=== PATIENT | male | born 1955 | race Caucasian/White ===

== ENCOUNTER → 2020-06-13 10:03 | Outpatient (CLI) | payer MEDICAID | END | disposition home or self-care (01) | LOC: D.HCCARDIO 10:03 → D.HCCECHO 11:00 | PROVIDERS: ATTEND Internal Medicine Cardiovascular Disease | DX: I25.10 Atherosclerotic heart disease of native coronary artery without angina pectoris (principal) ==

== ENCOUNTER 2020-06-26 12:36 | Day surgery (SDC) | payer MEDICAID ==
[~2020-06-26] VITALS: Ht 188 cm; Wt 120.9 kg
--- NOTE | ~2020-06-26 | HEMODYNAMI ---
PATIENT:TAMMY ANTONIO MEDICAL RECORD: [id number] : 57 LOCATION:[facility] ADMISSION DATE: 06/26/20 Generatedon:06/26/202015:24 Patient name: TAMMY ANTONIO Patient #: [id number] SSN: [id number] : 1955 Date of study: 06/26/2020 Page: Of Hemodynamic Procedure Report Patient Data Patient Demographics Procedure consent was obtained First Name: TAMMY Gender: Male Last Name: MARISELA : 1955 Patient #: [id number] Age: 65 year(s) Race: SSN: [id number] Additional ID: [id number] Contact details [address]: [address] [place] [address] State: [place] City: [place] Zip code: [address] Admission Admission Data Admission Date: 06/26/2020 Admission Time: 12:36 Arrival Date: 06/26/2020 Arrival Time: 14:00 Admit Source: Other Insurance Payor: Private health insurance [facility] #: [id number] Procedure Procedure Types Cath Procedure Diagnostic Procedure C [facility] w/Coronaries Sedation Charges Moderate Sedation up to 15 minutes Procedure Description Procedure Date Procedure Date: 06/26/2020 Procedure Start Time: 15:08 Procedure End Time: 15:22 Procedure Staff Name Function Ricardo Dennison MD Performing Physician Teresa Mcghee RT Monitor Adryan Golden RT Scrub Padmini Mccollum RN Nurse Ovidio Damon RN Fiber Drier Operator Procedure Data Cath Procedure Fluoroscopy Diagnostic fluoroscopy Total fluoroscopy Time: 2.3 time: 2.3 min min Diagnostic fluoroscopy Total fluoroscopy dose: dose: 1175 mGy 1175 mGy Contrast Material Contrast Material Type Amount (ml) Isovue 300 77 Entry Location Entry Primary Successful Side Size Upsize Upsize Entry Closure Torres ccessful Closure Location (Fr) 1 (Fr) 2 (Fr) Remarks Device Remarks Radial Right 6 Fr Mechanical artery Short Compression Estimated blood loss: 5 ml Procedure Complications No complications Procedure Medications Medication Administration Route Dosage 0.9% NaCl I.V. 100 ml/hr Oxygen etCO2 Nasal cannula 2 l/min Lidocaine 2% added to field 20 Heparin Flush Bag added to field 2 bags (1000units/500ml NS) Radial Cocktail added to field 1 syringe (Verapamil 2mg/Nitro 400mcg/Heparin 1500units) Versed I.V. 2 mg Fentanyl I.V. 50 mcg Radial Cocktail I.A. 1 syringe (Verapamil 2mg/Nitro 400mcg/Heparin 1500units) Fentanyl I.V. 50 mcg Hemodynamics Rest Heart Rate: 76 (bpm) Pressure Samples Time Site Value (mmHg) Purpose Heart Use Rate(bpm) 15:12 LV 138/-11,11 Snapshot 83 15:12 AO 108/68(85) Pullback 85 15:12 LV 126/-3,11 Pullback 85 Gradients Valve Time Site 1 Site 2 Mean SEP/DFP Peak To Heart Use (mmHg) (sec/min) Peak Rate (mmHg) (bpm) Aortic 15:12 LV AO 8 6 18 85 126/-3,11 108/68(85) Calculations Valve P-P Mean Valve Index Valve Source Name Gradient Area Flow (cm2) Aortic 18 8 18 8 Snapshots Pre Cath Intra NCS Post Cath Vital Signs Time Heart Resp SPO2 etCO2 NIBP (mmHg) Rhythm Pain Sedation Rate (ipm) (%) (mmHg) Status Level (bpm) 14:50:51 79 13 98 36.7 125/79(100) NSR 0 (11) 10(A) , No pain 14:54:50 78 14 98 26.2 117/80(91) NSR 0 (11) 10(A) , No pain 14:58:50 76 11 98 22.4 121/77(107) NSR 0 (11) 10(A) , No pain 15:02:49 72 10 95 17.9 116/79(101) NSR 0 (11) 10(A) , No pain 15:06:47 71 13 94 42.6 120/78(103) NSR 0 (11) 10(A) , No pain 15:10:44 73 12 96 40.5 133/79(99) NSR 0 (11) 9(A) , No pain 15:14:46 79 11 94 40.4 126/73(91) NSR 0 (11) 9(A) , No pain 15:18:46 77 14 94 20.9 125/80(95) NSR 0 (11) 10(A) , No pain 15:22:45 75 11 95 40.4 108/76(93) NSR 0 (11) 10(A) , No pain Medications Time Medication Route Dose Verified Delivered Reason Notes Effectiveness by by 14:47:05 0.9% NaCl I.V. 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 2 mg Ricardo Padmini for sedation Juma Mccollum RN 15:07:54 Fentanyl I.V. 50 mcg Ricardo Padmini for sedation Juma Mccollum RN 15:11:08 Radial Cocktail I.A. 1 Ricardo Ricardo for (Verapamil syringe Juma Dennison MD vasodilation 2mg/Nitro 400mcg/Heparin 1500units) 15:11:28 Fentanyl I.V. 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 Start room use. 14:43:57 Diagnostic Cath Status : Elective 14:44:11 Time tracking: Regular hours (M-F 7:00 - 5:00) 14:44:15 Plan of Care:Hemodynamics will remain stable., Cardiac rhythm will remain stable., Comfort level will be maintained., Respiratory function will remain adequate., Patient/ family verbilizes understanding of procedure., Procedure tolerated without complication., Recovers from procedure without complications.. 14:44:23 Patient received from Pre/Post Procedure Room to CCL 2 Alert and oriented. Tansferred to table in Supine position. 14:44:24 Warm blankets applied, and matthew hugger turned on for patient comfort. 14:44:25 Correct patient and procedure confirmed by team. 14:44:25 ECG and BP/O2 sat monitors applied to patient. 14:47:05 0.9% NaCl 100 ml/hr I.V. was administered by Padmini Mccollum RN; used for procedure; Verbal order read back and verified. 14:47:12 Oxygen 2 l/min etCO2 Nasal cannula was administered by Padmini Mccollum RN; used for procedure; Verbal order read back and verified. 14:47:16 Lidocaine 2% 20ml vial added to field was administered by Ricardo Dennison MD; for local anesthetic; Verbal order read back and verified. 14:47:20 Heparin Flush Bag (1000units/500ml NS) 2 bags added to field was administered by Ricardo Dennison MD; used for procedure; Verbal order read back and verified. 14:47:28 Radial Cocktail (Verapamil 2mg/Nitro 400mcg/Heparin 1500units) 1 syringe added to field was administered by Ricardo Dennison MD; used for procedure; Verbal order read back and verified. 14:50:01 Vital chart was started 14:54:29 Baseline sample Acquired. 14:54:34 Rhythm: sinus tachycardia 14:57:59 Full Disclosure recording started 14:58:08 H&P Date Dictated: 06/26/2020 Within 30 days and on chart., H&P Addendum completed by physician on day of procedure. (MUST COMPLETE FOR ALL OUTPATIENTS). 14:58:10 Pre-procedure instructions explained to patient. 14:58:10 Pre-op teaching completed and patient verbalized understanding. 14:58:13 Family in patients room. 14:58:16 Patient NPO since Midnight. 14:58:23 Is the patient allergic to Iodine/contrast media? No. 14:58:24 Was the patient premedicated? Yes 14:58:25 Is patient on blood thinner?No 14:58:26 Patient diabetic? No. 14:58:28 Previous problem with sedation/anesthesia? No ? 14:58:30 Snore? Yes 14:58:31 Sleep apnea? No 14:58:34 Deviated septum? No 14:58:35 Opens mouth fully? Yes 14:58:36 Sticks out tongue? Yes 14:58:37 Airway obstruction? No ? 14:58:41 Dentures? No ? 14:58:44 Pre procedure: right dorsailis pedis pulse 2+ Normal; easily identifiable; not easily obliterated 14:58:46 Pre procedure: left dorsailis pedis pulse 2+ Normal; easily identifiable; not easily obliterated 14:58:48 Patient pain scale 0/10 ?. 14:58:53 IV patent on arrival in left forearm with 0.9% NaCl at [facility]. 14:58:56 Lab results completed and on chart. 15:02:11 Right Radial & Right Groin area was prepped with chlora-prep and draped in sterile fashion 15:02:12 Alarms reviewed by R. N. 15:02:12 Sharps counted by scrub and verified by R.N. 15:02:14 Physician arrived 15:02:14 --------ALL STOP TIME OUT------ 15:02:15 Final Timeout: patient, procedure, and site verified with staff and physician. All members of the team are in agreement. 15:02:17 Right Radial & Right Groin site verified by team. 15:02:21 Fire Safety Assessment: A--An alcohol-based skin anteseptic being used preoperatively., C--Open oxygen or nitrous oxide is being used., D--An ESU, laser, or fiber-optic light is being used. 15:02:24 Physical assessment completed. ASA score P 2 - A patient with mild systemic disease as per Ricardo Dennison MD. 15:02:31 Sedation plan: IV Moderate Sedation Medication:Versed, Fentanyl 15:06:43 Use device set Radial Dx or PCI 15:06:44 ACIST Syringe (66191) opened to sterile field. 15:06:44 Medline Cath Pack ([id number]) opened to sterile field. 15:06:45 Bag Decanter () opened to sterile field. 15:06:45 ACIST Hand Control (14224) opened to sterile field. 15:06:46 ACIST Manifold (55270) opened to sterile field. 15:06:46 Tegaderm 4 x 4 (1626W) opened to sterile field. 15:06:47 MBrace Wrist Support ([id number]) opened to sterile field. 15:06:48 NEEDLE Cook 21G 4cm Radial (U07670) opened to sterile field. 15:06:49 SHEATH 6FR RAIN (2594528) opened to sterile field. 15:06:50 EMERALD Guide Wire (231-550) opened to sterile field. 15:07:49 Versed 2 mg I.V. was administered by Padmini Mccollum RN; for sedation; Verbal order read back and verified. 15:07:54 Fentanyl 50 mcg I.V. was administered by Padmini Mccollum RN; for sedation; Verbal order read back and verified. 15:08:47 Procedure started. 15:08:52 Local anesthetic to right radial artery with Lidocaine 2% by Ricardo Dennison MD.INITIAL ACCESS ONLY 15:09:00 Zero performed for pressure channel P1 15:10:09 A 6 Fr Short sheath was inserted into the Right Radial artery 15:11:08 Radial Cocktail (Verapamil 2mg/Nitro 400mcg/Heparin 1500units) 1 syringe I.A. was administered by Ricardo Dennison MD; for vasodilation; Verbal order read back and verified. 15:11:28 Fentanyl 50 mcg I.V. was administered by Padmini Mccollum RN; for sedation; Verbal order read back and verified. 15:12:32 LV hemodynamics recorded. 15:12:33 LV gram done using CAMEJO 15:12:36 Injector settings: Ml/sec: 5, Volume: 15, 15:12:42 EF : 60 % 15:13:10 LCA angiography performed. 15:13:12 Injector settings: Ml/sec: 3, Volume: 6, 15:16:56 RCA angiography performed. 15:16:59 Injector settings: Ml/sec: 3, Volume: 6, 15:19:49 Catheter removed. 15:19:52 ZEPHYR REGULAR TR BAND (585264) opened to sterile field. 15:19:58 ACCDominant side:Right 15:20:11 Sheath removed intact; hemostasis achieved with Mechanical Compression to the Right Radial artery. 15:20:12 Procedure ended.(Physican Out) 15:20:45 Fluoroscopy time 02.30 minutes. 15:21:01 Fluoroscopy dose: 1175 mGy 15:21:01 Flurop Dose total: 1175 15:21:06 Dose Area Product 06968 mGy/cm. 15:21:14 Contrast amount:Isovue 300 77ml. 15:21:16 Maximum allowable dose exceeded? No. 15:21:17 Sharps counted by scrub and verified by R.N. 15:21:20 Insertion/operative site no bleeding no hematoma. 15:21:32 Post right radial artery:stable 15:21:33 Post Procedure Pulses reassessed and unchanged 15:21:35 Post procedure rhythm: unchanged. 15:21:38 Estimated blood loss: 5 ml 15:21:39 Post procedure instruction explained to patient.Patient verbalizes understanding. 15:21:40 Patient needs reinforcement of post procedure teaching. 15:22:01 Procedure and supply charges have been captured, reviewed, submitted and are correct. 15:22:10 Procedure type changed to Cath procedure, Diagnostic procedure, LHC, [facility] w/Coronaries, Sedation Charges, Moderate Sedation up to 15 minutes 15:22:19 Procedure Complication : No complications 15:22:21 Vital chart was stopped 15:22:26 [facility] Findings: MVD- MD will discuss options w/ pt 15:22:34 Operative report dictated upon procedure completion. 15:22:34 See physician's report for complete and final results. 15:22:38 Report given to Pre/Post Procedure Room. 15:22:41 Patient transfered to Pre/Post Procedure Room with Stretcher. 15:22:44 Procedure ended. 15:22:44 Full Disclosure recording stopped 15:22:49 End room use (Document Last) 15:23:38 End room use (Document Last) 15:24:01 End room use (Document Last) Device Usage Item Name Manufacture Quantity Catalog Hospital Part Current Minima l Lot# / Number Charge Number Stock Stock Serial# Code ACIST Acist 1 18940 454552 679193 066125 20 Syringe Medical (59281) Systems Inc Medline Medline 1 [id number] 077548 10037 190326 5 Cath Pack ([id number]) Bag Microtek 1 822529 19964 784033 5 Decanter Medical Inc. () ACIST Hand Acist 1 27340 550427 556763 862630 5 Control Medical (29036) Systems Inc ACIST Acist 1 03172 208633 819767 685373 5 Manifold Medical (09009) Systems Inc Tegaderm 4 3M 1 1626W 536901 862746 397748 5 x 4 (1626W) MBrace Advanced 1 140-0250-00 371167 11724 504985 5 Wrist Vascular Support Dynamics ([id number]) NEEDLE Cook Cook Medical 1 S15578 049951 334449 732028 5 21G 4cm Radial (D04752) SHEATH 6FR Cardinal 1 0065765 473264 0519279 837533 5 RAIN Health (3542378) EMERALD Cardinal 1 956-122 982429 363531 636174 5 Guide Wire Health (863-577) ZEPHYR Cardinal 1 063986 917369 8440211 972875 5 REGULAR TR Health BAND (798316) Signature Audit Newell Stage Time Signature Unsigned Intra-Procedure 06/26/2020 Teresa Mcghee 3:23:38 PM RT(R) Intra-Procedure 06/26/2020 Ovidio Damon RN 3:24:01 PM Intra-Procedure 06/26/2020 Ricardo Dennison MD 3:24:33 PM Signatures Performing Physician : Signature : Ricardo Dennison MD Date : Time : Monitor : Teresa Mcghee RT Signature : Date : Time : Nurse : Padmini Mccollum RN Signature : Date : Time : [facility] [address] [place] [address]
[2020-06-26] MEDS ORDERED: ZYLOPRIM100 MG PO (12:56)
[2020-06-26 13:09] VITALS: BP 157/92; BMI 34.2
[2020-06-26 13:49] LABS: BASOPHILS 0.2 % (0-2); EOSINOPHILS 2.3 % (0-7); HEMATOCRIT 49.8 % (42.0-54.0); HEMOGLOBIN 17.4 g/dL (13.5-17.5); IMMATURE GRANULOCYTES 0.5 % (0-5); LYMPHOCYTES 16.8 % (15-50); MCHC 34.9 g/dL (31.0-37.0); MCV 88.6 fL (80.0-100.0); MONOCYTES 6.3 % (2-11); NEUTROPHILS 73.9 % (40-80); PLATELET COUNT 108 10x3/uL (130-400); RBC 5.62 10x6/uL (4.20-6.10); RDW 13.7 % (11.5-14.5); WBC 6.5 10x3/uL (4.8-10.8)
[2020-06-26 14:12] LABS: ALT (SGPT) 49 U/L (10-68); CHOL - HDL RATIO 4.8 ratio (2.3-4.9); CHOLESTEROL, TOTAL 114 mg/dL (0-200); HDL CHOLESTEROL 24 mg/dL (32-96)
[2020-06-26 14:13] LABS: TRIGLYCERIDE 1008 mg/dL (30-200)
[2020-06-26 15:10] LABS: ANION GAP 17.9 mmol/L (8-16); CALCIUM 9.4 mg/dL (8.5-10.1); CARBON DIOXIDE 20.4 mmol/L (21.0-32.0); CREATININE - SERUM 1.2 mg/dL (0.6-1.3); POTASSIUM - SERUM 4.3 mmol/L (3.5-5.1)
--- NOTE | 2020-06-26 15:38 | NUR ---
PT RECEIVED BACK TO ROOM VIA STRETCHER FROM [employer] SPECIALIST FOR [employer]. PT AWAKE BUT A LITTLE DROWSY. PT DENIES PAIN OR DISCOMFORT. DR RODRIGUEZ AT BS, DISCUSSED THE PLAN OF CARE AND PROCEDURE RESULTS W PT AND . IV PATENT INFUSING VIA R ARM PER ORDERS. PT PLACED ON CARDIAC MONITORS, HR NSR RATE 79, BP 119/81, RR 11, SAT 96 ON ROOM AIR. ZYPHER BAND AND IMMOBILIZER TO R WRIST/ARM, DRESSING CDI NO S/S HEMATOMA OR BLEEDING NOTED. ARM PINK AND WARM, CAP REFILL BRISK. PT INSTRUCTED NOT TO USE ARM, HE VERBALIZED UNDERSTANDING. CALL LIGHT IN REACH, AT BS
--- NOTE | 2020-06-26 15:59 | NUR ---
PT RESTING COMFORTABLY, DENIES PAIN OR NEEDS AT THIS TIME. ZBAND AND IMMOBILIZER IN PLACE, DRESSING CDI NO S/S HEMATOMA NOTED. VSS. CALL LIGHT IN REACH, AT BS
--- NOTE | 2020-06-26 16:34 | NUR ---
4CC AIR REMOVED FROM ZBAND, NO BLEEDING OR S/S HEMATOMA NOTED. VSS. DR VEE AT BS, TALKING W PT AND ABOUT POSSIBLE SURGERY.
[2020-06-26] MEDS ORDERED: BAYER CHEWABLE81 MG PO (16:51)
--- NOTE | 2020-06-26 17:05 | NUR ---
3 ADD'L CC AIR REMOVED FROM Z BAND, NO BLEEDING OR S/S HEMATOMA NOTED. VSS AT PRESENT. CALL LIGHT IN REACH. PT OFFERED SANDWICH, DECLINES AT THIS TIME. AT BS.
[2020-06-26 17:08] VITALS: Ht 188 cm; Wt 120.9 kg
--- NOTE | 2020-06-26 17:18 | NUR ---
DISCHARGE INSTRUCTIONS REVIEWED W PT AND , BOTH VERBALIZED UNDERSTANDING. DISCUSSED ADDING ASPRIN 81MG DAILY PER DR VEE. IV REMOVED W CATH INTACT, MONITORS REMOVED. ZBAND REMAINS IN PLACE, PT UP TO DRESS FOR DISCHARGE.
--- NOTE | 2020-06-26 17:24 | NUR ---
PT AMBULATED TO BR, VOIDING W/O DIFFICULITY.
--- NOTE | 2020-06-26 17:35 | NUR ---
ZBAND AND REMAINING AIR REMOVED. 2X2 AND SM TEGADERM DRESSING APPLIED. NO BLEEDING OR S/S HEMATOMA NOTED. PT DISCHARGED VIA WC TO WAITING IN PRIVATE VEHICLE. PT HAD ALL BELONGINGS AND DISCHARGE PAPERWORK IN HAND.
== END 2020-06-26 17:35 | disposition home or self-care (01) ==
LOC: D.CATH 12:36 → EDSTATUS 14:00 → D.CATH 14:00
PROVIDERS: ATTEND Internal Medicine Cardiovascular Disease
DX: I25.119 Atherosclerotic heart disease of native coronary artery with unspecified angina pectoris (principal); I48.91 Unspecified atrial fibrillation; K21.9 Gastro-esophageal reflux disease without esophagitis; R00.2 Palpitations

== ENCOUNTER 2020-07-04 05:20 | Inpatient (IN) | payer MEDICAID ==
[2020-06-30 16:08] LABS: BASOPHILS 0.2 % (0-2); EOSINOPHILS 2.9 % (0-7); HEMATOCRIT 49.2 % (42.0-54.0); HEMOGLOBIN 17.2 g/dL (13.5-17.5); IMMATURE GRANULOCYTES 0.5 % (0-5); LYMPHOCYTES 19.8 % (15-50); MCH 31.1 pg (26.0-34.0); MEAN PLATELET VOLUME 10.5 fL (7.4-10.4); NEUTROPHILS 69.6 % (40-80); PLATELET COUNT 104 10x3/uL (130-400); RBC 5.53 10x6/uL (4.20-6.10); RDW 13.7 % (11.5-14.5); WBC 6.3 10x3/uL (4.8-10.8)
[2020-06-30 16:10] LABS: BILIRUBIN NEGATIVE (NEGATIVE); GLUCOSE NEGATIVE (NEGATIVE); KETONE NEGATIVE (NEGATIVE); NITRITE NEGATIVE (NEGATIVE); UROBILINOGEN NORMAL (NORMAL)
[2020-06-30 16:25] LABS: APTT 33.2 SECONDS (22.8-39.4); INR 1.01 (0.85-1.17); PROTIME 13.2 SECONDS (11.6-15.0)
[2020-06-30 16:36] LABS: ALBUMIN 4.1 g/dL (3.4-5.0); ANION GAP 10.5 mmol/L (8-16); BILIRUBIN - TOTAL 1.09 mg/dL (0.2-1.3); CARBON DIOXIDE 29.7 mmol/L (21.0-32.0); CREATININE - SERUM 1.2 mg/dL (0.6-1.3); PHOSPHOROUS 3.4 mg/dL (2.5-4.9); POTASSIUM - SERUM 4.2 mmol/L (3.5-5.1); PROTEIN - SERUM 7.5 g/dL (6.4-8.2); T4 THYROXIN - FREE 1.2 ng/dL (0.76-1.46); THYROID STIMULATING HORMONE 2.09 uIU/mL (0.36-3.74); URIC ACID 8.1 mg/dL (2.6-7.2)
[2020-07-04] VITALS (23 sets, daily range): BP systolic 90–157; BP diastolic 50–88; BMI 34.2; BMI 41.0
[~2020-07-04] VITALS: Ht 188 cm; Wt 120.9 kg
[~2020-07-04 05:20] MED LIST: BAYER CHEWABLE81 MG PO; ZYLOPRIM100 MG PO
--- NOTE | 2020-07-04 15:00 | NUR ---
PT ARRIVED AROUND 1445 VIA BED. CONNECTED TO VACATION GUIDE. ON VENT, ETT 8.0 23 A LIP LINE RIGHT. A/C, R14, TV 650, FIO2 100%, PEEP 5. MIDSTERNAL INCISION WITH DRESSING CDI. SUBTERNAL CT X 2 TO 20CM SUCTION, NO AIR LEAK NOTED. PEGGY DRAIN IN PLACE WITH BLOODY DRAINAGE NOTED. RIJ WITH PLASMOLYTE AT 100ML/HR. RIGHT RADIAL STUART RECURED. RIGHT LEG HARVEST WRAPPED IN COBAN DRESSING. MICHELET AND SCD'S ON LEFT LEG. RAND CATHETER IN PLACE. WRIST RESTRAINTS ON PER ORDER. SAFETY MEASURES IN PLACE. WILL CONTINUE TO MONITOR CLOSELY.
--- NOTE | 2020-07-04 16:31 | NUR ---
PLACED ON CPAP TRAIL AT THIS TIME. FIO2 40%. WILL CONTINUE TO MONITOR CLOSELY.
--- NOTE | 2020-07-04 17:12 | NUR ---
ABG RESULTS REPORTED TO DR. VEE. OKAY TO EXTUBATE. EXTUBATED AT 1712. PLACED ON 3L O2 VIA NC. WRIST RESTRAINTS DC'D. SPOUSE AT BEDSIDE. WILL CONTINUE TO MONITOR.
--- NOTE | 2020-07-04 17:53 | NUR ---
RECEIVED REPORT AND ASSUMED CARE OF PATIENT.
[2020-07-05] VITALS (23 sets, daily range): BP systolic 102–160; BP diastolic 70–112; Ht 188 cm; Wt 120.9 kg
--- NOTE | 2020-07-05 05:30 | NUR ---
PT BATHED PER STAFF, STOOD ST BEDSIDE WITH MIN ASSIST, TOLERATED WELL, UP IN CHAIR, VITALS STABLE
[2020-07-05 05:44] LABS: HEMATOCRIT 47.5 % (42.0-54.0); HEMOGLOBIN 16.3 g/dL (13.5-17.5); MCH 30.9 pg (26.0-34.0); MCHC 34.3 g/dL (31.0-37.0); MCV 90.1 fL (80.0-100.0); MEAN PLATELET VOLUME 10.4 fL (7.4-10.4); PLATELET COUNT 185 10x3/uL (130-400); RBC 5.27 10x6/uL (4.20-6.10); RDW 14.3 % (11.5-14.5); WBC 20.8 10x3/uL (4.8-10.8)
[2020-07-05 05:56] LABS: ALBUMIN 3.4 g/dL (3.4-5.0); ANION GAP 16.1 mmol/L (8-16); BILIRUBIN - TOTAL 0.82 mg/dL (0.2-1.3); CALCIUM 7.5 mg/dL (8.5-10.1); CARBON DIOXIDE 22.6 mmol/L (21.0-32.0); CREATININE - SERUM 1.8 mg/dL (0.6-1.3); PHOSPHOROUS 4.3 mg/dL (2.5-4.9); POTASSIUM - SERUM 5.7 mmol/L (3.5-5.1); PROTEIN - SERUM 6.5 g/dL (6.4-8.2)
--- NOTE | 2020-07-05 07:10 | NUR ---
REPORT RECEIVED FROM OFF-GOING NURSE. PATIENT IS UP IN RECLINER. C/O DISCOMFORT FROM THE CHAIR AND INCISIONAL PAIN.
--- NOTE | 2020-07-05 07:45 | NUR ---
SHIFT ASSESSMENT COMPLETED. PLASMALYTE D/C'D PER ORDER DR. VEE. GROANING AND C/O DISCOMFORT FROM THE CHAIR.
[2020-07-05 08:27] LABS: LYMPHOCYTES 2 % (15-50); MONOCYTES 11 % (2-11); NEUTROPHILS 82 % (40-80); PLATELET ESTIMATE NORMAL
--- NOTE | 2020-07-05 08:43 | OP ---
PATIENT NAME: TAMMY ANTONIO MEDICAL RECORD: [id number] :57 [facility]ATION[id number] ADMISSION DATE:07/04/20 SURGEON: CECIL VEE MD DATE OF OPERATION: 07/04/2020 SURGEON: Cecil Vee MD PROCEDURE PERFORMED: 1. Coronary artery bypass graft times 5 (left internal mammary to LAD, reverse saphenous vein graft from aorta to first diagonal, aorta-ramus intermedius, aorta to obtuse marginal, aorta to posterior descending artery). 2. Endoscopic saphenous vein harvest. PREOPERATIVE DIAGNOSIS: Coronary artery disease. POSTOPERATIVE DIAGNOSIS: Coronary artery disease. ANESTHESIA: General endotracheal anesthesia. ESTIMATED BLOOD LOSS: Total cardiopulmonary bypass with Cell Saver retransfusion 1 packed red blood cell, 1 platelets. COMPLICATIONS: None. SPECIMENS TAVARES lymph node, benign. CONDITION: Stable. DISPOSITION: CV ICU. OPERATIVE FINDINGS: 1. Good quality greater saphenous vein harvested from the right lower extremity with 2 small bridging incisions, right upper thigh. 2. Good quality left internal mammary artery LAD, 2.0 mm. 3. First diagonal 1.5 mm and thin walled. 4. Ramus intermedius 2.5 mm in deep intramyocardial. 5. Obtuse marginal was small but had good flow 1.25 mm. 6. Posterior descending artery 1.75 mm. This vessel crossed the inferior wall of the RV to the distal septum. INDICATION: Coronary artery disease. DESCRIPTION OF PROCEDURE: The patient was brought to the operating suite. General anesthesia was obtained, the patient was prepped and draped. Greater saphenous vein harvested endoscopically to the right lower extremity. Side branch divided with electrocautery, vessel ligated proximal and distally, removed. Side branches were clipped or tied and pin sites were oversewn. Leg was closed in 2 layers. Median sternotomy incision was made. Subcutaneous tissues divided by electrocautery. Sternum was divided with a saw. Left hemisternum was elevated. The left lower cavity was entered. Left internal mammary artery and vein were taken down as a pedicle graft. Sternal retractor was placed. Pericardium was opened. Heparin was given. OPERATIVE REPORT [id number] TAMMY ANTONIO Aorta was cannulated. Dual stage venous cannula was inserted. Activated clotting time was appropriately elevated. The internal mammary was clipped distally and made ready for anastomosis. The patient was placed in cardiopulmonary bypass. Sites for distal anastomoses were selected. The patient was cooled. Antegrade cardioplegic cannula was inserted. Crossclamp was placed. Cardioplegia was given antegrade and this was repeated at 15 to 20 minute intervals including down the completed vein grafts. Distal anastomosis was performed in standard technique. Proximal anastomosis with single cross-clamp technique with a 4.0 mm punch. Aortic root de-aired. Proximal anastomosis tied down. Vein graft de-aired and flow restored. The patient returned to spontaneous rhythm. Hemostasis was assured, fully rewarmed, weaned from cardiopulmonary bypass and was stable. The patient was decannulated. Aortic cannula site was oversewn with a nonpledgeted suture. Protamine was given. Thorough irrigation was undertaken. The graft lay appropriately. The chest was evacuated and irrigated. The internal mammary harvest site inspected for bleeding. The drain was placed in the mediastinum, left pleural cavity. The ventricular pacing wires were placed. The pericardial fat was loosely reapproximated. Sternum was closed with wires and sternal plate on the sternal body. Fascia was closed. Subcutaneous tissue was closed. Skin was closed. Dermabond was placed. The needle and sponge counts were reported as correct. The patient was taken to ICU in stable condition. TRANSINT:[id number] Voice Confirmation ID: [id number] DOCUMENT ID: [id number] CECIL VEE MD at 0843 CC: MARTA RODRIGUEZ M.D. and MOSHE BORGES [phone] DICTATION DATE: 07/04/20 1756 JUNIOR PARALEGAL: 07/05/20 0144 ADM IN [place] [id number] [place] [address]
--- NOTE | 2020-07-05 09:00 | NUR ---
PATIENT REPORTS SIDE EFFECTS FROM PERCOCET GIVEN FOR PAIN DURING THE NIGHT. STATES IT "MAKES ME JERK AWAKE EVERY FEW MINUTES". REPORTS THAT HE DID NOT SLEEP AT ALL LAST NIGHT. DR. VEE INFORMED BY PATIENT WELL.
--- NOTE | 2020-07-05 09:15 | NUR ---
TYLENOL 650MG GIVEN FOR C/O PAIN 6/10 ON PAIN SCALE.
--- NOTE | 2020-07-05 10:30 | NUR ---
DR. HIGGINBOTHAM HERE. ORDERS NORCO 10/325 EVERY 4 HOURS NEEDED FOR PAIN.
--- NOTE | 2020-07-05 11:00 | NUR ---
ARTERIAL PRESSURE LINE REMOVED. ALL DISCONTINUED DRIPS TAKEN DOWN. ZINACEF COMPLETE.
--- NOTE | 2020-07-05 13:30 | NUR ---
ASSISTED BACK TO BED. AT BEDSIDE. REPORTS DECREASED PAIN 4/10 FOLLOWING NORCO.
--- NOTE | 2020-07-05 13:46 | NUR ---
MORPHINE 2MG IVP GIVEN PRE CHEST TUBE REMOVAL PER DR. VEE.
--- NOTE | 2020-07-05 14:30 | NUR ---
PATIENT LYING WITH EYES CLOSED. AWAKENS EASILY. REPORTS 2/10 ON PAIN SCALE. AWAITING REMOVAL OF CHEST TUBES.
--- NOTE | 2020-07-05 15:00 | NUR ---
CHEST TUBES REMOVED BY DR. VEE. BETADINE OINTMENT, STERILE 4X4S AND TEGADERM OCCLUSIVE DRESSING APPLIED. CVP PRESSURE MONITOR D/C'D. TRIPLE LUMEN CVL IS SALINE LOCKED.
[2020-07-05 16:00] LABS: ANION GAP 15.3 mmol/L (8-16); CALCIUM 7.6 mg/dL (8.5-10.1); CARBON DIOXIDE 24.8 mmol/L (21.0-32.0); CREATININE - SERUM 1.9 mg/dL (0.6-1.3); POTASSIUM - SERUM 5.1 mmol/L (3.5-5.1)
--- NOTE | 2020-07-05 17:30 | NUR ---
NORCO 10/325 ONE TABLET GIVEN FOR INCISIONAL PAIN. REFUSED SUPPER. "I JUST FEEL STUFFED"
--- NOTE | 2020-07-05 23:30 | NUR ---
PT IN UCAF WITH HR IN 160'S, CALLED DR VEE, ORDERS RECIEVED, STARTED AMIO BOLUS AND GTT
--- NOTE | 2020-07-05 23:46 | NUR ---
PT REMAINS IN UCAF 130-140, CALLED DR VEE, ORDERS RECIEVED FOR LOPRESSOR 2.5 MG IVP
[2020-07-06] VITALS (51 sets, daily range): BP systolic 111–153; BP diastolic 59–97
--- NOTE | 2020-07-06 00:40 | NUR ---
PT HR REMAINS 130-140, CALLED DR VEE, RECIEVED ORDER FOR LOPRESSOR 5 MG IVP
[2020-07-06 05:06] LABS: HEMATOCRIT 42.5 % (42.0-54.0); HEMOGLOBIN 14.7 g/dL (13.5-17.5); MCHC 34.6 g/dL (31.0-37.0); MCV 89.7 fL (80.0-100.0); NEUTROPHILS 88.2 % (40-80); PLATELET COUNT 151 10x3/uL (130-400); RBC 4.74 10x6/uL (4.20-6.10); RDW 14.5 % (11.5-14.5); WBC 17.5 10x3/uL (4.8-10.8)
[2020-07-06 05:40] LABS: ALBUMIN 3.2 g/dL (3.4-5.0); ANION GAP 13.9 mmol/L (8-16); BILIRUBIN - TOTAL 0.92 mg/dL (0.2-1.3); CARBON DIOXIDE 25.5 mmol/L (21.0-32.0); CREATININE - SERUM 1.6 mg/dL (0.6-1.3); POTASSIUM - SERUM 5.4 mmol/L (3.5-5.1); PROTEIN - SERUM 6.3 g/dL (6.4-8.2)
[2020-07-06 05:43] LABS: PHOSPHOROUS 2.4 mg/dL (2.5-4.9)
--- NOTE | 2020-07-06 06:46 | NUR ---
CONVERTED TO 130S AFIB @ 6641. NOTIFIED . RECIEVED ORDERS FOR 2.5MG LOPRESSOR IV. WILL CONTINUE TO MONITOR.
--- NOTE | 2020-07-06 08:21 | NUR ---
0700 PT RECIEVED UP IN CHAIR ALERT AND ORIENTED AFIB 120S, DR VEE IN UNIT ORDERS FOR IV LOPRESSOR AND TO ASSIST BACK TO BED, PEGGY DRAIN COMPRESSED, TPM WIRES COILED, RLE HARVEST SITES CHRISTIAN, RAND DRAINING YELLOW URINE PT ASSISTED BACK TO BED AND ORDERS FOR CARDIZEM RECIEVED
--- NOTE | 2020-07-06 09:28 | NUR ---
HOLDING NS ORDER PER DR OLVERA NURSE
--- NOTE | 2020-07-06 09:42 | NUR ---
PT HR NSR 70-80S, DR WADE SINGH AND DR HIGGINBOTHAM AWARE
--- NOTE | 2020-07-06 12:26 | NUR ---
1030 DR OLVERA NURSE COURTNI NOTIFIED PT HR ALTERNATING NSR 80S AND AFIB UP TO 120S
--- NOTE | 2020-07-06 13:57 | NUR ---
PER DR NANDA CAMPBELL NS
--- NOTE | 2020-07-06 14:16 | NUR ---
PER DR VEE 5 CARDIZEM AND INCREASE GTT TO 10
--- NOTE | 2020-07-06 14:25 | TEE ---
PATIENT:TAMMY ANTONIO MEDICAL RECORD: [id number] LOCATION:[place] [address] AGE OF PATIENT: 65 ADMISSION DATE: 07/04/20 SEX: M REFERRING PHYSICIAN: INTERPRETING PHYSICIAN: KEYANNA LINTON MD TRANSESOPHAGEAL ECHOCARDIOGRAM Date: 07/04/20 MORGAN CHARGE Y INDICATIONS: CABG PREMEDICATIONS: PATIENT'S RESPONSE PROCEDURE DOPPLER MEASUREMENTS: LVIT LA PA RA LVOT RVOT Asc. Ao AV Gradient Peak AV Mean AV Area MV Gradient Peak MV Mean MV Area INTERPRETATION: Doppler: 2-D: COLOR FLOW DOPPLER NORMAL SALINE STUDY: MISCELLANOUS: DIAGNOSIS: PLAN: Tax Economist:3 Dr. Bustos Supervisor Cytogenetic Laboratory: [facility] COMMENTS: DATE OF SERVICE: 07/05/2020 Preop shows normal LV wall motion, wall thickening of all segments, EF greater than 50%. Aortic valve is tricuspid, trivial AI. Left atrium appears normal. Mitral valve appears normal with mild MR. Postoperatively, good wall motion and thickening of all segments, EF greater than 50%. Aortic valve shows good valve excursion, trivial AI. Mitral valve appears normal. Trace MR. NTS:[id number] Voice Confirmation ID: [id number] DOCUMENT ID: [id number] TRANSESOPHAGEAL ECHOCARDIOGRAM REPORT [id number] ADELINA ANTONIO at 1425 CC: [id number] DICTATION DATE: 07/05/20 1143 VISUAL TRAINING AIDE: 07/06/20 0200 ADM IN [facility] [address] [id number]
--- NOTE | 2020-07-06 17:27 | NUR ---
PT ATE PEACHES AND JELLO FOR DINNER, REFUSED DINNER TRAY
--- NOTE | 2020-07-06 19:35 | NUR ---
REPORT REC'D AND CARE ASSUMED, REC'D PT SITTING UP IN BED WATCHING TV, O2 @ 4LITERS VIA NC, RIJ DRSG CDI WITH CARDIZEM INFUSING @ 10MG/HR, CM-AF @ 97, MIDSTERNAL DRSG CDI, SUBSTERNAL DRSG CDI, LEFT SUBSTERNAL PEGGY DRAIN COMPRESSED WITH SANGUINOUS DRAINAGE, RAND PATENT DRAINING CONCENTRATED URINE, MAEE, GENERALIZED EDEMA, BED IN LOW POSITION, SR UP X 2, CALL LIGHT IN REACH, PT REQUESTING ICE AND WATER, BOTH PROVIDED, DENIES FURTHER NEEDS.
--- NOTE | 2020-07-06 21:15 | NUR ---
EVENING MEDS GIVEN, FSBS 192, 4 UNITS REGULAR GIVEN, PT RATING PAIN "1-2" ON 0-10 PAIN SCALE
--- NOTE | 2020-07-06 22:55 | NUR ---
PT COMPLAINS OF BEING UNCOMFORTABLE IN BED, PT ASSISTED UP TO RECLINER, FEET ELEVATED, BEDSIDE TABLE AND CALL LIGHT MOVED WITHIN REACH.
[2020-07-07] VITALS (24 sets, daily range): BP systolic 93–151; BP diastolic 54–89
[2020-07-07 06:28] LABS: BASOPHILS 0.1 % (0-2); EOSINOPHILS 0.7 % (0-7); HEMATOCRIT 37.7 % (42.0-54.0); HEMOGLOBIN 12.8 g/dL (13.5-17.5); IMMATURE GRANULOCYTES 0.3 % (0-5); LYMPHOCYTES 7.8 % (15-50); MCH 30.8 pg (26.0-34.0); MCV 90.6 fL (80.0-100.0); MEAN PLATELET VOLUME 10.3 fL (7.4-10.4); NEUTROPHILS 83.1 % (40-80); PLATELET COUNT 150 10x3/uL (130-400); RBC 4.16 10x6/uL (4.20-6.10); RDW 14.4 % (11.5-14.5); WBC 15.2 10x3/uL (4.8-10.8)
[2020-07-07 06:53] LABS: ALBUMIN 2.8 g/dL (3.4-5.0); ANION GAP 9.7 mmol/L (8-16); BILIRUBIN - TOTAL 1.1 mg/dL (0.2-1.3); CARBON DIOXIDE 29.7 mmol/L (21.0-32.0); CREATININE - SERUM 1.3 mg/dL (0.6-1.3); MAGNESIUM - SERUM 2.4 mg/dL (1.8-2.4); PHOSPHOROUS 2.1 mg/dL (2.5-4.9)
[2020-07-07 06:54] LABS: POTASSIUM - SERUM 4.4 mmol/L (3.5-5.1)
--- NOTE | 2020-07-07 12:15 | NUR ---
Nutrition Follow-up: POD 3 CABG. Appetite still not very good. -BM; +flatus. Diet: Diabetic Wt: 324# (07/07) Labs noted: Na 134, Glu 144, Ca 8.0, PO4 2.1, Alb 2.8 Meds noted: Humulin, Protonix, Senokot, Colace -Encourage PO intake and honor food preferences within diet restrictions. -Monitor wt. -RD following.
--- NOTE | 2020-07-07 19:05 | NUR ---
RECIVED BEDSIDE SHIFT REPORT. PT IS SITTING UP IN BED A&OX4, VSS. RIGHT IJ CDI, L PEGGY DRAIN IS CDI COMPRESSED. PT USES URINAL WHICH IS AT BEDSIDE TABLE. HE VOICES"NO" TO ANY PAIN OR NEEDS AT THIS TIME. FULL ASSESSMENT DONE AND WILL DOC IN FLOWSHEET. BED IS LOW,SIDE RAISLX2,CALL LIGTH WITHIN REACH. WILL CONITNUE TO MONITOR
--- NOTE | 2020-07-07 21:23 | NUR ---
PT IS SITTING UP IN BED VISITNG WITH AT BEDSIDE. VSS. HE MOVES SELF IN BED FOR COMFORT. EMPTIED URINAL OF 550ML YELLOW URINE. NO NEEDS OR C/O OF PAIN VOICED. BED IS LOW,SIDE RIALSX2,CALL LIGHT WIHTIN REACH. WILL CONTINUE TO MONITOR
[2020-07-08] VITALS (24 sets, daily range): BP systolic 94–127; BP diastolic 35–80
[2020-07-08 05:35] LABS: BASOPHILS 0.1 % (0-2); EOSINOPHILS 1.4 % (0-7); HEMATOCRIT 39.6 % (42.0-54.0); HEMOGLOBIN 13.4 g/dL (13.5-17.5); IMMATURE GRANULOCYTES 1.2 % (0-5); LYMPHOCYTES 10.1 % (15-50); MCH 30.7 pg (26.0-34.0); MCHC 33.8 g/dL (31.0-37.0); MCV 90.8 fL (80.0-100.0); MEAN PLATELET VOLUME 10.4 fL (7.4-10.4); MONOCYTES 7.8 % (2-11); NEUTROPHILS 79.4 % (40-80); RBC 4.36 10x6/uL (4.20-6.10); RDW 13.9 % (11.5-14.5); WBC 12.5 10x3/uL (4.8-10.8)
[2020-07-08 05:36] LABS: PLATELET COUNT 185 10x3/uL (130-400)
--- NOTE | 2020-07-08 06:00 | NUR ---
ASSISTED PT TO SIT UP IN CHAIR WITH MODERATE ASSESSTENCE. CHANGED RIGHT IJ CENTRAL LINE DRESSING WHILE KEEPING STERIL FIELD. PT TOLERATED WELL. VSS. NO C/O OF PAIN VOICED. CHAIR WHEELS ARE LOCKED, CALL LIGHT IS WITHIN REACH. WILL CONITNUE TO MONITOR
[2020-07-08 06:23] LABS: ALBUMIN 2.7 g/dL (3.4-5.0); ANION GAP 9.3 mmol/L (8-16); BILIRUBIN - TOTAL 0.86 mg/dL (0.2-1.3); CALCIUM 8.1 mg/dL (8.5-10.1); CARBON DIOXIDE 29.9 mmol/L (21.0-32.0); CREATININE - SERUM 1.2 mg/dL (0.6-1.3); MAGNESIUM - SERUM 2.5 mg/dL (1.8-2.4); PHOSPHOROUS 2.2 mg/dL (2.5-4.9); POTASSIUM - SERUM 4.2 mmol/L (3.5-5.1); PROTEIN - SERUM 6.3 g/dL (6.4-8.2)
--- NOTE | 2020-07-08 08:00 | NUR ---
PATIENT UP IN CHAIR AT BEDSIDE. AWAKE AND ALERT SKIN WARM AND DRY. PEGGY COMPRESSED WITH SERSANG DRAINAGE. MID CHEST AND SUBSTERNAL DRESSING DRY AND INTACT. RIJ INFUSING WITH CARDIZEM TURNED DOWN 5 MG/HOUR. BREAKFAST TRAY SERVED.
--- NOTE | 2020-07-08 08:30 | NUR ---
CARDIZEM GTT TURNED OFF.
--- NOTE | 2020-07-08 09:00 | NUR ---
HERE UPDATE GIVEN. AMBULATED IN JANE WITH PHYSICAL THERAPY
--- NOTE | 2020-07-08 13:17 | NUR ---
PEGGY DRAIN PULLED PER DR. VEE. PATIENT TOLERATED WELL. AT BEDSIDE.
--- NOTE | 2020-07-08 13:30 | NUR ---
AMBULATED IN JANE PER PHYSICAL THERAPY
--- NOTE | 2020-07-08 17:07 | NUR ---
1540-ASSISTED PT TO BEDSIDE CHAIR AMBULATED EASILY 1630-ASSISTED WITH DINNER TRAY- AT BEDSIDE
--- NOTE | 2020-07-08 19:10 | NUR ---
RECIVED BEDSIDE SHIFT REPORT. PT IS SITTING UP IN BED A&OX4 WATCHING TV. HIS VSS. HIS HR IS 114 A.FIB WHICH HE HAS BEEN SINCE EARLIER TODAY. IS AWARE. HE IS ON BETATPACE BID. WILL BRYANTUE TO MONITOR THIS. HE ALSO JUST RECIVED AN UPDRAFT TX WHICH HAS SLIGHLTY INCREASED HR. ALL OTHER VS ARE STABLE. HE HAS MICHELET/SCD'S ON BILAT. PEGGY DRAIN WAS REMOVED TODAY. RIGHT IJ IS CDI SL. MIDLINE CHEST INCISION DRESSING IS CDI. HE VOICES "NO" TO ANY PAIN. FULL ASSESSMENT WILL BE DONE AND DOC IN FLOW SHEET. BED IS LOW,SIDE RAISLX2, HE VERBALIZED UNDERSTANDING TO USE CALL LIGHT WHEN NEED ASSISTANCE. CALL LIGHT IS WITHIN REACH. WILL FANYUE TO MONITOR
--- NOTE | 2020-07-08 20:52 | NUR ---
PT IS SITTING UP IN BED TALKING ON PHONE. VSS. SCANNED AND ADMINISTERED PO MEDS. BS IS 190. WILL COVER ORDERED. SEE MAR. HE VOICES"NOPE" TO ANY PAIN. I PROVIDE HIM WITH A NEW CUP OF ICE WATER PER REQUEST AND EMPTIED HIS URINAL OF 300ML YELLOW URINE. BED IS LEFT LOW,SIDE RIALSX2,CALL LIGHT WITHNI REACH. WILL CONINTUE TO MONITOR
[2020-07-09] VITALS (23 sets, daily range): BP systolic 89–113; BP diastolic 51–76
--- NOTE | 2020-07-09 02:04 | NUR ---
PT USED CALL [facility] AND ASKED"DO YOU THINK I COULD GET SOMETHING FOR PAIN, MY BACK AND SHOULDERS ARE JUST ACHY, I BELEIVE I HAVE SLEPT WRONG". WILL SCAN AND ADMINISTER PER PRN ORDER. VSS. NO OTHER NEEDS VOICED. HE MOVES SELF IN BED FOR COMFORT. BED IS LOW,SIDE RASILX2,CALL LIGHT WITHIN REACH. WILL CONTINUE TO MONITOR
--- NOTE | 2020-07-09 05:47 | NUR ---
JUST ASSISTED PT UP IN CHAIR FOR THE MORNIGN WITH LITTLE ASSISTANCE. HE VOICES "THAT PAIN PILL REALLY HELPED EARLIER". HE VOICES"NO" TO ANY PAIN AT THIS TIME. VSS. ICE WATER PROVIDED. CHAIR WHEELS ARE LOCKED, CALL LIGHT WITHIN REACH. WILL CONITNUE TO MONITOR
[2020-07-09 05:53] LABS: BASOPHILS 0.1 % (0-2); EOSINOPHILS 2.4 % (0-7); HEMATOCRIT 38.6 % (42.0-54.0); IMMATURE GRANULOCYTES 1.5 % (0-5); LYMPHOCYTES 14.5 % (15-50); MCH 30.7 pg (26.0-34.0); MCHC 33.7 g/dL (31.0-37.0); MCV 91.3 fL (80.0-100.0); MEAN PLATELET VOLUME 10.3 fL (7.4-10.4); MONOCYTES 9.4 % (2-11); NEUTROPHILS 72.1 % (40-80); RBC 4.23 10x6/uL (4.20-6.10); WBC 10.3 10x3/uL (4.8-10.8)
[2020-07-09 06:07] LABS: PLATELET COUNT 224 10x3/uL (130-400)
[2020-07-09 06:09] LABS: ALBUMIN 2.5 g/dL (3.4-5.0); BILIRUBIN - TOTAL 0.64 mg/dL (0.2-1.3); CARBON DIOXIDE 30.1 mmol/L (21.0-32.0); CREATININE - SERUM 1.2 mg/dL (0.6-1.3); MAGNESIUM - SERUM 2.4 mg/dL (1.8-2.4); PHOSPHOROUS 2.7 mg/dL (2.5-4.9); POTASSIUM - SERUM 4.1 mmol/L (3.5-5.1); PROTEIN - SERUM 6.1 g/dL (6.4-8.2)
--- NOTE | 2020-07-09 06:53 | NUR ---
PT IS SITTING UP IN CHAIR WATCHING TV. VSS. NO NEEDS OR C/O OF PAIN VOICED. CALL LIGHT IS WITHIN REACH.
--- NOTE | 2020-07-09 11:39 | NUR ---
0915-AMBULATED WITH PHYSICAL THERAPY IN JANE-O2 AT 2L AFIB ON POST TELEMETRY
--- NOTE | 2020-07-09 12:17 | NUR ---
929-AMBULATED IN [place] WITH PHYSICAL THERAPY-PT STATED AWAKE SINCE 99-ASSISTED TO BED-AFIB ON MONITOR-NIBP 104/60 1200- AT BEDSIDE-PT ASLEEP AT THIS TIME TIME-AFIB ON MONITOR
[2020-07-10] VITALS (24 sets, daily range): BP systolic 94–126; BP diastolic 61–78
[2020-07-10 05:31] LABS: HEMATOCRIT 41.1 % (42.0-54.0); HEMOGLOBIN 13.8 g/dL (13.5-17.5); MCH 30.8 pg (26.0-34.0); MCHC 33.6 g/dL (31.0-37.0); MCV 91.7 fL (80.0-100.0); MEAN PLATELET VOLUME 10.6 fL (7.4-10.4); RBC 4.48 10x6/uL (4.20-6.10); RDW 14.3 % (11.5-14.5); WBC 11.7 10x3/uL (4.8-10.8)
[2020-07-10 06:02] LABS: ALBUMIN 2.6 g/dL (3.4-5.0); ANION GAP 13.5 mmol/L (8-16); BILIRUBIN - TOTAL 0.72 mg/dL (0.2-1.3); CARBON DIOXIDE 26.9 mmol/L (21.0-32.0); CREATININE - SERUM 1.2 mg/dL (0.6-1.3); POTASSIUM - SERUM 4.4 mmol/L (3.5-5.1); PROTEIN - SERUM 6.3 g/dL (6.4-8.2)
--- NOTE | 2020-07-10 07:20 | NUR ---
Pt up in chair. Resting comfortably. Pain 1/10 at incision site. On 2l O2 via NC. RIJ saline lock. Midsternal incision intact. Subternal TPM wire in place with dressing c/d/i. RLE harvest sites CHRISTIAN. MICHELET'S on bilateral legs. SCD'S currently off. Call light in reach. No fever noted. Will continue to monitor.
--- NOTE | 2020-07-10 10:25 | NUR ---
TPM wires dc'd by Dr. Miranda. Tolerated well. Betadine applied to previous ct sites, and on lower midsternal incision. 4x4 and tagetherm applied to site. Will continue to monitor.
--- NOTE | 2020-07-10 10:28 | NUR ---
O2 turned down to 1L via nc.
--- NOTE | 2020-07-10 11:33 | NUR ---
Nutrition Follow-up: POD 6 CABG. Eating well. Ate majority of breakfast this AM. Diet: Diabetic PO intake: 75-100% Wt: 266# (07/09) Last BM: 07/10 Labs noted: Glu 151, Ca 8.0, Alb 2.6 Meds noted: Humulin, Protonix, Senokot, Colace -Monitor wt. -RD following.
--- NOTE | 2020-07-10 14:07 | NUR ---
RIJ CVL Dc'd per order. Tolerated well. 2x2 and tagederm dressing applied to site. No further needs at this time. Will continue to monitor.
--- NOTE | 2020-07-10 19:10 | NUR ---
PT RECEIVED IN BED WITH EYES OPEN WATCHING TV. NO NEEDS MADE KNOWN AT THIS TIME. CALL LIGHT IN REACH. WILL CONTINUE TO OBSERVE.
[2020-07-11] VITALS (11 sets, daily range): BP systolic 101–113; BP diastolic 56–70
[2020-07-11 04:22] LABS: HEMATOCRIT 37.4 % (42.0-54.0); HEMOGLOBIN 12.7 g/dL (13.5-17.5); MCH 30.8 pg (26.0-34.0); MCV 90.6 fL (80.0-100.0); MEAN PLATELET VOLUME 10.1 fL (7.4-10.4); RBC 4.13 10x6/uL (4.20-6.10); RDW 14.3 % (11.5-14.5); WBC 9.1 10x3/uL (4.8-10.8)
[2020-07-11 04:36] LABS: ALBUMIN 2.4 g/dL (3.4-5.0); ANION GAP 11.1 mmol/L (8-16); BILIRUBIN - TOTAL 0.57 mg/dL (0.2-1.3); CALCIUM 7.9 mg/dL (8.5-10.1); CREATININE - SERUM 1.3 mg/dL (0.6-1.3); POTASSIUM - SERUM 4.1 mmol/L (3.5-5.1); PROTEIN - SERUM 5.7 g/dL (6.4-8.2)
--- NOTE | 2020-07-11 09:58 | NUR ---
PT AWAKE AND AMBULATING EASILY IN RM
--- NOTE | 2020-07-11 13:13 | NUR ---
SPOKE TO PATIENT AND REGARDING BETAPACE PO -PRIMARY PURPOSE IS TO KEEP HEART REGULAR BEAT-SIDE EFFECT IS SLOWING RATE-RECOMMENDED TO CHECK PULSE FOR ONE FULL MINUTE AT WRIST-IF LESS THEN 60 B/M-CALL DR VEE OFFICE FOR FURTHER DIRECTION-INFORMED PATIENT-CHEST INCISION SHOULD HAVE NO DRAINAGE-CALL IF ANY SEEN--INFORMED THREE INSERTION CHEST TUBE SITES MAY DRAIN-SMALL AMOUNT -LARGE AMOUNTS HAVE TO BE CALLED IN
[2020-07-11] MEDS ORDERED: BETAPACE 80 MG80 MG PO (15:32)
[2020-07-11] MEDS ORDERED: PERCOCET 5-3251 TAB PO (15:34)
--- NOTE | 2020-07-11 17:01 | NUR ---
1600-DISCHARGE TEACHING DONE- AT BEDSIDE-PT EXPRESSED STRONG CONCERN IF WILL RETURN TO [place] IN TIME FOR PHARMACY PRESCRIPTIONS-STATED CLOSES AT 1730-APPT TIMES GIVEN-PT DISCHARGED VIA WHEELCHAIR
--- NOTE | 2020-07-11 20:21 | MORECARE ---
CASE MANAGEMENT DISCHARGE SUMMARY PATIENT: TAMMY ANTONIO UNIT: [id number] ADM DATE: 07/04/20 AGE: 65 : 57 SEX: M ROOM/BED: [facility] AUTHOR: CHRISTY TOLBERT PHYSICIAN: REFERRING PHYSICIAN: REYMUNDO VEE MD DATE OF SERVICE: 07/11/20 Discharge Plan Patient Name: TAMMY ANTONIO [facility] [facility] 1955 Planned Disposition: Home Anticipated Discharge Date: Discharge Date: 07/11/2020 Expected LOS: Initial Reviewer: [email or web address] Initial Review Date: 07/04/2020 Generated: 07/11/20 9:20 pm Patient Name: TAMMY ANTONIO Page [id number] at 2020 All edits/amendments must be made on the electronic document DICTATION DATE: 07/11/202019 HOME THEATER EXPERIENCE EXPERT: CLARITA 07/11/202019 RPT#: [id number] DC DATE:07/11/20 STATUS: DIS IN [facility] [address] [place] [address] END OF REPORT
--- NOTE | 2020-07-11 20:27 | MORECARE ---
CASE MANAGEMENT DISCHARGE SUMMARY PATIENT: TAMMY ANTONIO UNIT: [id number] ADM DATE: 07/04/20 AGE: 65 : 57 SEX: M [facility] AUTHOR: DIDI,DOC PHYSICIAN: REFERRING PHYSICIAN: REYMUNDO VEE MD DATE OF SERVICE: 07/11/20 Discharge Plan Patient Name: TAMMY ANTONIO Facility: [facility]:[place] : 1955 Planned Disposition: Home Anticipated Discharge Date: Discharge Date: 07/11/2020 Expected LOS: Initial Reviewer: [email or web address] Initial Review Date: 07/04/2020 Generated: 07/11/20 9:27 pm Comments DCP- Discharge Planning Updated by [email or web address]: Toya Burnett on 07/11/20 7:[address] Patient Name: TAMMY ANTONIO Admission Status: Elective Accout number: [id number] Admission Date: 07-04-2020 : 1955 Admission Diagnosis:ATHSCL HEART DISEASE OF [place] CORONARY ARTERY W/O ANG Attending: REYMUNDO VEE Current LOS: 7 Anticipated DC Date: Planned Disposition: Home Primary Insurance: [place] [employer] Discharge Planning Comments: CM met with patient to complete initial dc planning assessment. CM educated patient on the CM role and verbal consent given by patient to complete assessment. Patient lives at home with family. Patient is independent. At discharge patient plans to return home and feels this is a safe discharge. CM discussed availability of home health, rehab services, and medical equipment. Patient will have family to transport home. Patient denied known discharge needs at this time. CM will continue to follow and will assist as needed with dc plans/needs. Patient requesting information on getting CPAP. CM explained to speak with PCP and she can set-up for a sleep study for approximately 6- 8 weeks out. CM will continue to follow and assist as needed with discharge planning / needs. Boot Liner Maker: Toya Burnett DCPIA - Discharge Planning Initial Assessment Updated by [email or web address]: Toya Burnett on 07/11/20 8:21 pm * Is the patient Alert and Oriented? Yes * How many steps to enter\exit or inside your home? ramp * PCP ADELA ROGERS * Pharmacy [facility] * Preadmission Environment Home with Family * ADLs Independent * Equipment None * List name and contact numbers for known caregivers / representatives who currently or will assist patient after discharge: TALIA ANTONIO - - [phone] * Verbal permission to speak to the caregivers and representatives has been obtained from the patient. Yes * Community resources currently utilized None * Additional services required to return to the preadmission environment? No * Can the patient safely return to the preadmission environment? Yes * Has this patient been hospitalized within the prior 30 days at any hospital? No Last DP export: 07/11/20 7:21 p Patient Name: TAMMY ANTONIO Page [id number] at 2026 All edits/amendments must be made on the electronic document DICTATION DATE: 07/11/202026 ELECTRICAL TIMING DEVICE CALIBRATOR: CLARITA 07/11/202026 RPT#: [id number] DC DATE:07/11/20 STATUS: DIS IN [facility] [address] [place] [address] END OF REPORT
--- NOTE | 2020-07-11 20:48 | MORECARE ---
CASE MANAGEMENT DISCHARGE SUMMARY PATIENT: TAMMY ANTONIO UNIT: [id number] ADM DATE: 07/04/20 AGE: 65 : 57 SEX: M ROOM/BED: D.[facility] AUTHOR: DIDI,DOC PHYSICIAN: REFERRING PHYSICIAN: REYMUNDO VEE MD DATE OF SERVICE: 07/11/20 Discharge Plan Patient Name: TAMMY ANTONIO Facility: [facility]:[place] : 1955 Planned Disposition: Home Anticipated Discharge Date: Discharge Date: 07/11/2020 Expected LOS: Initial Reviewer: [email or web address] Initial Review Date: 07/04/2020 Generated: 07/11/20 9:48 pm Comments DCP- Discharge Planning Updated by [email or web address]: Toya Burnett on 07/11/20 7:[address] Patient Name: TAMMY ANTONIO Admission Status: Elective Accout number: [id number] Admission Date: 07-04-2020 : 1955 Admission Diagnosis:ATHSCL HEART DISEASE OF [place] CORONARY ARTERY W/O ANG Attending: REYMUNDO VEE Current LOS: 7 Anticipated DC Date: Planned Disposition: Home Primary Insurance: [place] [employer] [place] Discharge Planning Comments: CM met with patient to complete initial dc planning assessment. CM educated patient on the CM role and verbal consent given by patient to complete assessment. Patient lives at home with family. Patient is independent. At discharge patient plans to return home and feels this is a safe discharge. CM discussed availability of home health, rehab services, and medical equipment. Patient will have family to transport home. Patient denied known discharge needs at this time. CM will continue to follow and will assist as needed with dc plans/needs. Patient requesting information on getting CPAP. CM explained to speak with PCP and she can set-up for a sleep study for approximately 6- 8 weeks out. CM will continue to follow and assist as needed with discharge planning / needs. Inspector Scales: Toya Burnett DCPIA - Discharge Planning Initial Assessment Updated by [email or web address]: Toya Burnett on 07/11/20 8:21 pm * Is the patient Alert and Oriented? Yes * How many steps to enter\exit or inside your home? ramp * PCP ADELA ROGERS * Pharmacy [facility] * Preadmission Environment Home with Family * ADLs Independent * Equipment None * List name and contact numbers for known caregivers / representatives who currently or will assist patient after discharge: TALIA ANTONIO - - [phone] * Verbal permission to speak to the caregivers and representatives has been obtained from the patient. Yes * Community resources currently utilized None * Additional services required to return to the preadmission environment? No * Can the patient safely return to the preadmission environment? Yes * Has this patient been hospitalized within the prior 30 days at any hospital? No Last DP export: 07/11/20 7:27 p Patient Name: TAMMY ANTONIO Page [id number] at 204 All edits/amendments must be made on the electronic document DICTATION DATE: 07/11/202047 MEDICAL LEAD: CLARITA 07/11/202047 RPT#: [id number] DC DATE:07/11/20 STATUS: DIS IN [facility] [address] [place] [address] END OF REPORT
== END 2020-07-11 17:04 | disposition home or self-care (01) | DRG 236 ==
LOC: D.CVICU 05:20 → D.SDCHOLD 05:20 → D.CVICU 11:39
PROVIDERS: Family Medicine; ADMIT Thoracic Surgery (Cardiothoracic Vascular Surgery); ATTEND Thoracic Surgery (Cardiothoracic Vascular Surgery)
PROC: 021309W Bypass Coronary Artery, Four or More Arteries from Aorta with Autologous Venous Tissue, Open Approach (ICD-10-PCS; 2020-07-04)
PROC: 06BP4ZZ Excision of Right Saphenous Vein, Percutaneous Endoscopic Approach (ICD-10-PCS; 2020-07-04)
PROC: 5A1221Z Performance of Cardiac Output, Continuous (ICD-10-PCS; 2020-07-04)
PROC: B24BZZ4 Ultrasonography of Heart with Aorta, Transesophageal (ICD-10-PCS; 2020-07-04)
PROC: 02100Z9 Bypass Coronary Artery, One Artery from Left Internal Mammary, Open Approach (ICD-10-PCS; principal; 2020-07-04 07:30)
DX: I25.119 Atherosclerotic heart disease of native coronary artery with unspecified angina pectoris (principal); E11.9 Type 2 diabetes mellitus without complications; K59.00 Constipation, unspecified; R50.9 Fever, unspecified; D72.829 Elevated white blood cell count, unspecified; R52 Pain, unspecified; I10 Essential (primary) hypertension; E78.5 Hyperlipidemia, unspecified; I48.0 Paroxysmal atrial fibrillation; E87.5 Hyperkalemia

== ENCOUNTER → 2020-08-02 08:32 | Outpatient (CLI) | payer MEDICAID ==
[2020-07-05 11:09] VITALS: BMI 41.3
[~2020-08-02 08:32] MED LIST changes: +BETAPACE 80 MG80 MG PO; +PERCOCET 5-3251 TAB PO
[2020-08-02 09:04] LABS: BASOPHILS 0.2 % (0-2); EOSINOPHILS 5.2 % (0-7); HEMATOCRIT 45.9 % (42.0-54.0); HEMOGLOBIN 15.2 g/dL (13.5-17.5); IMMATURE GRANULOCYTES 0.2 % (0-5); LYMPHOCYTES 18.3 % (15-50); MCH 30.3 pg (26.0-34.0); MCHC 33.1 g/dL (31.0-37.0); MCV 91.6 fL (80.0-100.0); MEAN PLATELET VOLUME 10.4 fL (7.4-10.4); MONOCYTES 9.5 % (2-11); NEUTROPHILS 66.6 % (40-80); PLATELET COUNT 138 10x3/uL (130-400); RBC 5.01 10x6/uL (4.20-6.10); RDW 14.1 % (11.5-14.5); WBC 5.9 10x3/uL (4.8-10.8)
[2020-08-02 09:15] LABS: CALCIUM 9.7 mg/dL (8.5-10.1); CARBON DIOXIDE 29.5 mmol/L (21.0-32.0); CREATININE - SERUM 1.3 mg/dL (0.6-1.3); POTASSIUM - SERUM 4.5 mmol/L (3.5-5.1)
== END | disposition home or self-care (01) ==
LOC: D.RAD 08:32
PROVIDERS: ATTEND Thoracic Surgery (Cardiothoracic Vascular Surgery)
DX: Z98.890 Other specified postprocedural states (principal)